=== PATIENT | male | born 1945 | race Caucasian/White ===

== ENCOUNTER → 2023-10-13 12:45 | Outpatient (REF) | payer MEDICARE, OTHER, SELFPAY ==
[2023-10-13 14:29] LABS: % Basophils 0.2 % (0-2); % Eosinophils 0.5 % (0-6); % Immature Granulocytes 0.6 % (0-0.5); % Lymphocytes 26.5 % (20.5-51.1); % Monocytes 11.7 % (1.7-9.3); % Neutrophils 60.5 % (42.2-75.2); Absolute Immature Granulocytes 0.1 10^3/uL (0-0.05); Absolute Lymphocytes 2.3 10^3/uL (1.2-3.4); Absolute Neutrophils 5.1 10^3/uL (1.4-6.5); Hematocrit 36.6 % (39.0-52.0); Hemoglobin 12.8 g/dL (13.0-18.0); Mean Corpuscular Hgb 31.4 pg (27.0-31.0); Mean Corpuscular Volume 89.9 fL (80.0-94.0); Mean Platelet Volume 10.2 fL (7.4-10.4); Nucleated Red Blood Cells % 0 % (-); Platelet Count 216 10^3/uL (130-400); Red Blood Cell Count 4.07 10^6/uL (4.70-6.10); Red Cell Dist. Width 14.6 % (11.5-14.5); White Blood Cell Count 8.5 10^3/uL (4.8-10.8)
[2023-10-13 14:34] LABS: INR 1.31; PT 16.1 Sec (11.4-14.6)
[2023-10-13 14:40] LABS: ALT (SGPT) 41 U/L (0-50); AST (SGOT) 38 U/L (17-59); Albumin 4.6 g/dl (3.5-5.0); Alkaline Phosphatase 74 U/L (38-126); Blood Urea Nitrogen 31 mg/dl (9-20); Calcium 9.4 mg/dl (8.4-10.2); Carbon Dioxide 32 mmol/L (22-30); Chloride 90 mmol/L (98-107); Glucose 118 mg/dl (70-99); Magnesium 1.4 mg/dl (1.6-2.3); Potassium 3.1 mmol/L (3.5-5.1); Sodium 134 mmol/L (135-145); Total Bilirubin 0.9 mg/dl (0.2-1.3); Total Protein 7.6 g/dl (6.3-8.2); eGFR 56.23
== END ==
LOC: SDSPAT 12:45
PROVIDERS: ATTENDING PHYSICIAN Internal Medicine Cardiovascular Disease; FAMILY PHYSICIAN Family Medicine; OTHER PHYSICIAN Internal Medicine Cardiovascular Disease
DX: Z01.818 Encounter for other preprocedural examination (principal); I48.91 Unspecified atrial fibrillation
CPT/HCPCS: 36415; 75572; 80053; 83735; 85025; 85610; 86850; 86900; 86901; 93005; Q9967

== ENCOUNTER → 2023-10-19 12:31 | Outpatient (REF) | payer MEDICARE, OTHER, SELFPAY | LOC: REG 12:31 | PROVIDERS: ATTENDING PHYSICIAN Internal Medicine Cardiovascular Disease | DX: E83.42 Hypomagnesemia (principal) | CPT/HCPCS: 83735 ==

== ENCOUNTER 2023-10-28 09:25 | Day surgery (SDC) | payer MEDICARE, OTHER, SELFPAY ==
[2023-10-13 13:45] VITALS: BMI 37.5
--- NOTE | 2023-10-15 16:20 | W.PN.UPDATE ---
Update Note
Progress Note Update
faxed CT report Dr Blair PCP and spoke to office. Maurilio texted as well. Attempted to reach patient on home and cell several times. LM
[2023-10-28] VITALS (12 sets, daily range): BP systolic 118–147; BP diastolic 59–116
[2023-10-28 10:14] LABS: Glucose - Point of Care 183 mg/dl (70-99)
[2023-10-28 13:27] LABS: ACT-LR - POC 158 Seconds (116-155)
[2023-10-28 13:42] LABS: ACT-LR - POC 256 Seconds (116-155)
[2023-10-28 13:56] LABS: ACT-LR - POC 347 Seconds (116-155)
[2023-10-28 14:20] LABS: ACT-LR - POC 358 Seconds (116-155)
[2023-10-28 15:06] LABS: ACT-LR - POC 279 Seconds (116-155)
[2023-10-28 15:40] LABS: ACT-LR - POC > 397 Seconds (116-155)
--- NOTE | 2023-10-28 15:50 | ITS.CL.ABL ---
Flux Tube Attendant - Ablation
Ablation
Procedure Report:
Primary Shellfish Grower: Lincoln Lord MD
Procedure Date: 10/28/2023
Patient History:
Patient is a pleasant 70-year-old male with past medical history significant for hypertension, hyperlipidemia, COPD, lung mass, obesity, sick sinus syndrome status post dual-chamber Biotronik pacemaker, persistent atrial fibrillation.
See H&P for complete details.
Indication:
Symptomatic persistent atrial fibrillation
Early recurrence after cardioversion
Failed amiodarone therapy
Arrhythmia Specific History:
Prior Medical Therapies for Rate and Rhythm Control:
X Beta-sarah
X Calcium channel-sarah
X Amiodarone
[ ] Dronederone
[ ] Sotalol
[ ] Flecainide
[ ] Dofetilide
[ ] Options limited by bradycardia
[ ] Options limited by comorbid renal disease
Prior Procedural Therapies for AF/AFL:
X Cardioversion
[ ] Pulmonary Vein Isolation
[ ] Posterior Wall Isolation
[ ] Additional lines (Specify)
[ ] Surgical Mayes-MAZE or PVI (Specify)
Procedure Performed:
X AF ablation procedure (37783) -- includes LA/CS pacing, trans-septal, 3D mapping, + ICE
[ ] +IV drug (34283)
[ ] +Other Arrhythmia (26888)
X +Other AF Line/ablation (41125) -- posterior wall
Risks and expected recovery has been explained in detail. Alternative options have been explored, and in a shared-decision making fashion we have decided that this was the most appropriate procedure.
Method
NPO status confirmed. Grounding pad applied. Defibrillator pads applied. Continuous surface ECG, pulse oximetry, and blood pressure were monitored. Procedure was performed under general anesthesia, with anesthesia services.
Both groins were clipped, prepped with Chloraprep, and draped in sterile fashion. Time out was called. Local anesthesia administered with bupivacaine. The right and left femoral veins were accessed for catheter placement, using ultrasound guidance,
micro-puncture needle/wire, and modified seldinger technique. 3 sheaths were placed. The following catheters were used:
[ ] Tacticath SE (D/F Curve) ablation catheter
X Viewflex 9Fr ICE catheter
X Inquiry decapolar 6Fr diagnostic catheter
[ ] CRD Hex 6Fr
[ ] Arctic Front Advance Cryoballoon ([ ]28mm[ ]23mm)
[ ] Achieve Advance mapping catheter ([ ]15mm[ ]20mm)
X FlexCath Contour 10 Fr with PulseSelect PFA Catheter
X Advisor HD Grid Mapping Catheter, SE
[ ] AcusTrueAbility AcuNav 8 Fr ICE catheter
[ ]Other: [ ]
Intracardiac ultrasound (ICE) was carefully advanced into the right atrium to guide sheath placement over a J-wire, catheter placement, guide trans-septal puncture, identify potential complications, identify anatomic structures and ensure proper
contact between ablation catheter and tissue. There was a small posterior/basal effusion by LV present at start of study and which remained unchanged throughout the study.
Heparin was given prior to trans-septal puncture. Heparin was given to achieve and maintain a target ACT of 300-400 seconds throughout the procedure.
Trans-septal access was performed under ICE guidance. The trans-septal puncture was performed with a SafeSept wire through a Brockenbrough needle assembly through the steerable sheath. The wire was visualized as it entered the LSPV and system
advanced under ICE guidance and fluoroscopy into the LA. The Brockenbrough needle assembly, SafeSept wire and sheath dilator were removed under negative pressure. LA pressure was measured and recorded.
ICE and 3D mapping was performed to identify relevant cardiac structures. A careful 3D map was created to assess for regions of low-voltage and abnormal electrogram signals using HD grid mapping catheter and PulseSelect catheter. Additional mapping
was performed as outlined below.
Prior to ablation, glycopyrrolate was provided. PulseSelect catheter was advanced over J-wire to the ostium of each vein. Pulmonary vein isolation was performed with ostial and antral lesions in a circumferential manner. Contact was visualized via
EAM, ICE, fluoroscopy, and EGM signals. Posterior wall isolation was performed by anchoring the J-wire within the pulmonary vein and placing the PulseSelect catheter in contact with the posterior wall as visualized by aforementioned methods.
Following completion of ablation lesions, sinus rhythm was restored with a 300J synchronized DCCV and a post-ablation voltage/activation map was performed in sinus rhythm/atrial pacing. Entrance and exit block were confirmed for each vein and the
posterior wall.
Catheter and sheath were removed from the left atrium and post-ablation intracardiac echo evaluation was consistent with pre-ablation with no changes. The small posterior/basal located pericardial effusion was unchanged and there is no left atrial
thrombus or left ventricle thrombus seen. Electrophysiology study was performed. Hemostasis was obtained with Vascade for each sheath and with manual pressure. Protamine was used for reversal. Device testing pre and post procedure demonstrated
appropriate device function with no change to lead parameters or device function.
Estimated Blood Loss
5-10 mL
Complications
None
Fluoroscopy: 11.4 minutes; 130.74 mGy; DAP 27.2
Baseline Intervals:
Rhythm: AF/AUTOMOTIVE GLAZIER
QRS: 235 ms
QT: 313 ms
QTc: 338 ms
R-R: 860 ms
Post-Procedure Intervals:
OK: 230 ms
QRS: 108 ms
QT: 420 ms
QTc: 428 ms
A-A: 962 ms
R-R: 962 ms
AVWB: 550 ms
AVNERP: 600/350 ms
Recommendations
- Bedrest with straight-leg precautions as ordered
- Anticipate same day discharge if patient meeting clinical metrics
- Resume home medications as indicated
- Continue current medical therapy, consider DC amiodarone in 3 mo
- Ok to resume anticoagulation tonight if patient and groin sites stable
- PPI daily for 30 days
- Plan for follow-up in office in 4-[address] Lord
Eric Wiley DO
Clinical Cardiac Senior Professional Services Consultant
cc: Lincoln Lord MD; Jose F Blair MD
[2023-10-28 16:04] LABS: Glucose - Point of Care 170 mg/dl (70-99)
--- NOTE | 2023-10-28 16:51 | W.PN.UPDATE ---
Update Note
Progress Note Update
PT seen post PFA. Bilat groin sites with vascade closure, no ht/bleeding. OOB to chair, urinating without difficulty. Post EKG SR w/1st deg AVB and TWI- this is not paced and his underlying rhythm. Resume Eliquis tonight and continue other meds as
before. Followup with Dr. Lord as scheduled. Home later today if gorin sites/tele remain stable.
== END 2023-10-28 18:20 | disposition home or self-care (01) ==
LOC: CATH 09:25
PROVIDERS: ATTENDING PHYSICIAN Internal Medicine Cardiovascular Disease; FAMILY PHYSICIAN Family Medicine; OTHER PHYSICIAN Internal Medicine Cardiovascular Disease
DX: I48.19 Other persistent atrial fibrillation (principal); Z95.0 Presence of cardiac pacemaker; E66.9 Obesity, unspecified; J44.9 Chronic obstructive pulmonary disease, unspecified; E78.5 Hyperlipidemia, unspecified; Z79.84 Long term (current) use of oral hypoglycemic drugs; E11.22 Type 2 diabetes mellitus with diabetic chronic kidney disease; Z68.37 Body mass index [BMI] 37.0-37.9, adult; I13.0 Hypertensive heart and chronic kidney disease with heart failure and stage 1 through stage 4 chronic kidney disease, or unspecified chronic kidney disease; I50.32 Chronic diastolic (congestive) heart failure; N18.30 Chronic kidney disease, stage 3 unspecified; G47.00 Insomnia, unspecified; Z79.899 Other long term (current) drug therapy; F32.A Depression, unspecified; Z87.891 Personal history of nicotine dependence; Z79.01 Long term (current) use of anticoagulants; G47.33 Obstructive sleep apnea (adult) (pediatric); M19.90 Unspecified osteoarthritis, unspecified site; Z86.718 Personal history of other venous thrombosis and embolism; F41.9 Anxiety disorder, unspecified
CPT/HCPCS: C1732; C1894; C1733; C1769; 76937; 82962; 85347; 86900; 86901; 93005; 93655; 93656; C1760